=== PATIENT | male | born 1980 | race Caucasian/White ===

== ENCOUNTER 2018-06-14 07:57 | Emergency (ER) | payer BC ==
--- NOTE | 2018-06-14 08:51 | EDM.PDOC ---
ED HPI GENERAL MEDICAL PROBLEM - General Chief Complaint: Gastrointestinal Problem Stated Complaint: POSSIBLE THROMBOSIS Time Seen by Provider: 06/14/18 08:02 Source of Information: Reports: Patient History Limitations: Reports: No Limitations - History of Present Illness INITIAL COMMENTS - FREE TEXT/NARRATIVE: History of present illness: [Patient has a history of hemorrhoids and has had a thrombosed hemorrhoid in the past. He thinks he has another one. She has pain, no bleeding Review of systems: As per history of present illness and below otherwise all systems reviewed and negative. Past medical history: As per history of present illness and as reviewed below otherwise noncontributory. Surgical history: As per history of present illness and as reviewed below otherwise noncontributory. Social history: No reported history of drug or alcohol abuse. Family history: As per history of present illness and as reviewed below otherwise noncontributory. Physical exam: General: Well developed, well nourished in NAD HEENT: Atraumatic, normocephalic, pupils reactive, negative for conjunctival pallor or scleral icterus, mucous membranes moist, throat clear, neck supple, nontender, trachea midline. Lungs: Clear to auscultation, breath sounds equal bilaterally, chest nontender. Heart: S1S2, regular, negative for clicks, rubs, or JVD. Abdomen: NABS, Soft, nondistended, nontender. Negative for masses or hepatosplenomegaly. Negative for costovertebral tenderness. Pelvis: Stable nontender. Genitourinary: Deferred. Rectal: Positive external hemorrhoid, erythematous, it is not thrombosed at this time is fluctuant Extremities: Atraumatic, negative for cords or calf pain. Neurovascular unremarkable. Neuro: Awake, alert, oriented. Cranial nerves II through XII unremarkable. Cerebellum unremarkable. Motor and sensory unremarkable throughout. Exam nonfocal. Skin:warm and dry Diagnostics: None Therapeutics: None ED Course: Unremarkable Impression: Inflamed hemorrhoids Prescriptions: Anusol cream, stool softeners, tramadol for pain Plan: Take meds as directed, follow up with your primary care physician, return to ER if symptoms worsen or change.follow-up with general surgery Definitive disposition and diagnosis as appropriate pending reevaluation and review of above. Rectal Pain Score (Numeric/FACES): 5 - Related Data Allergies Allergy/AdvReac Type Severity Reaction Status Date / Time erythromycin base Allergy Other Verified 06/14/18 08:22 Penicillins Allergy Other Verified 06/14/18 08:22 Home Meds: Home Meds Hydrocortisone [Anusol-HC] 30 gm RC QID #1 tube 06/14/18 [Rx] Multivitamin [Multivitamins] 1 tab DAILY 06/14/18 [History] traMADol HCl [Tramadol HCl] 50 mg PO Q6H PRN #16 tablet 06/14/18 [Rx] Past Medical History - Past Health History Medical/Surgical History: Denies Medical/Surgical History Endocrine/Metabolic History: Reports: Obesity/BMI 30+ - Past Surgical History GI Surgical History: Reports: Other (See Below) Other GI Surgeries/Procedures: stomach surgery Musculoskeletal Surgical History: Reports: Other (See Below) Other Musculoskeletal Surgeries/Procedures:: nerve release on ankle Social & Family History - Family History Family Medical History: Noncontributory - Tobacco Use Smoking Status *Q: Current Every Day Smoker Years of Tobacco use: 20 Packs/Tins Daily: 1 - Recreational Drug Use Recreational Drug Use: No ED ROS GENERAL - Review of Systems Review Of Systems: ROS reveals no pertinent complaints other than HPI. ED EXAM, RENAL/ - Physical Exam Exam: See Below (See history of present illness) Course - Vital Signs Last Recorded V/S: Last Vital Signs Temp 96.8 F 06/14/18 08:20 Pulse 85 06/14/18 08:20 Resp 18 06/14/18 08:20 BP 132/98 H 06/14/18 08:20 Pulse Ox 96 06/14/18 08:20 Departure - Departure Time of Disposition: 08:50 Disposition: Home, Self-Care 01 Condition: Good Clinical Impression: Inflamed external hemorrhoid - Discharge Information *PRESCRIPTION DRUG MONITORING PROGRAM REVIEWED*: No *COPY OF PRESCRIPTION DRUG MONITORING REPORT IN PATIENT [place]: No Prescriptions: Hydrocortisone [Anusol-HC] 30 gm RC QID #1 tube traMADol HCl [Tramadol HCl] 50 mg PO Q6H PRN #16 tablet PRN Reason: Pain Referrals: PCP,None [Primary Care Provider] - Additional Instructions: The following information is given to patients seen in the emergency department who are being discharged to home. This information is to outline your options for follow-up care. We provide all patients seen in our emergency department with a follow-up referral. The need for follow-up, as well as the timing and circumstances, are variable depending upon the specifics of your emergency department visit. If you don't have a primary care physician on staff, we will provide you with a referral. We always advise you to contact your personal physician following an emergency department visit to inform them of the circumstance of the visit and for follow-up with them and/or the need for any referrals to a consulting specialist. The emergency department will also refer you to a specialist when appropriate. This referral assures that you have the opportunity for follow-up care with a specialist. All of these measure are taken in an effort to provide you with optimal care, which includes your follow-up. Under all circumstances we always encourage you to contact your private physician who remains a resource for coordinating your care. When calling for follow-up care, please make the office aware that this follow-up is from your recent emergency room visit. If for any reason you are refused follow-up, please contact the [facility] at and asked to speak to the emergency department charge nurse. Take meds as directed, follow up with your primary care physician, return to ER if symptoms worsen or change. [facility] [place] [id number]
== END 2018-06-14 09:13 | disposition home or self-care (01) ==
LOC: MW.ED 07:57
DX: K64.4 Residual hemorrhoidal skin tags (principal); F17.210 Nicotine dependence, cigarettes, uncomplicated; Z88.0 Allergy status to penicillin; Z88.1 Allergy status to other antibiotic agents
CPT/HCPCS: 99282; 99283

== ENCOUNTER 2018-08-20 07:29 | Day surgery (SDC) | payer BC ==
[~2018-08-20 07:29] MED LIST: Bupivacaine 0.5% 10 ML SDV ONE; Lactated Ringers 1,000 ML IV SCH; ceFAZolin 1 GM Vial ONE; ceFAZolin 2 GM in Premix Bag 1 BAG IV SCH
--- NOTE | 2018-08-20 08:20 | PCM.PREANE ---
Preanesthetic Assessment - Anesthesia/Transfusion/Family Hx Anesthesia History: Prior Anesthesia Reaction (HIGH TOLERANCE, otherwise no other problems) Other Type of Anesthesia Reaction Comment: "it takes alot to put me under" " woke up during my EGD" Family History of Anesthesia Reaction: No Transfusion History: No Prior Transfusion(s) - Review of Systems General: No Symptoms Pulmonary: No Symptoms Cardiovascular: No Symptoms Gastrointestinal: No Symptoms Neurological: No Symptoms Other: Reports: None - Physical Assessment O2 Sat by Pulse Oximetry: 96 Respiratory Rate: 16 Vital Signs: Last Vital Signs Temp Pulse 84 08/20/18 08:00 Resp 16 08/20/18 08:00 BP 145/92 H 08/20/18 08:00 Pulse Ox 96 08/20/18 08:00 Height: 1.96 m Weight: 127.006 kg ASA Class: 2 Mental Status: Alert & Oriented x3 Airway Class: Mallampati = 2 Dentition: Reports: Dentures (full upper) Thyro-Mental Finger Breadths: 3 Mouth Opening Finger Breadths: 3 ROM/Head Extension: Full Lungs: Clear to Auscultation, Normal Respiratory Effort Cardiovascular: Regular Rate, Regular Rhythm - Allergies Allergies/Adverse Reactions: Allergies Allergy/AdvReac Type Severity Reaction Status Date / Time erythromycin base Allergy Cannot Verified 08/16/18 12:13 Remember Penicillins Allergy Cannot Verified 08/16/18 12:13 Remember - Acknowledgements Anesthesia Type Planned: General Anesthesia Pt an Appropriate Candidate for the Planned Anesthesia: Yes Alternatives and Risks of Anesthesia Discussed w Pt/Guardian: Yes Pt/Guardian Understands and Agrees with Anesthesia Plan: Yes PreAnesthesia Questionnaire - Past Health History Medical/Surgical History: Denies Medical/Surgical History HEENT History: Reports: Other (See Below) Other HEENT History: upper denture Cardiovascular History: Reports: None Respiratory History: Reports: Other (See Below) (chronic tobacco use for 20 years) Gastrointestinal History: Reports: GERD (controlled), Hemorrhoids Other Gastrointestinal History: hx barretts esophagus Genitourinary History: Reports: None Musculoskeletal History: Reports: Fracture Other Musculoskeletal History: hx fx ribs, forearm and hand Neurological History: Reports: Concussion Psychiatric History: Reports: Depression Endocrine/Metabolic History: Reports: Obesity/BMI 30+ Hematologic History: Reports: None Immunologic History: Reports: None Oncologic (Cancer) History: Reports: None Dermatologic History: Reports: None - Past Surgical History Head Surgeries/Procedures: Reports: None HEENT Surgical History: Reports: LASIK, Oral Surgery (dental extractions) Cardiovascular Surgical History: Reports: None Respiratory Surgical History: Reports: None GI Surgical History: Reports: EGD, Placido Fundoplication Male Surgical History: Reports: None Endocrine Surgical History: Reports: None Neurological Surgical History: Reports: None Musculoskeletal Surgical History: Reports: Other (See Below) Other Musculoskeletal Surgeries/Procedures:: nerve release on left ankle, plantar fasciotomy-left Oncologic Surgical History: Reports: None - SUBSTANCE USE Smoking Status *Q: Current Every Day Smoker (for 20 years) Tobacco Use Within Last Twelve Months: Cigarettes Days Per Week of Alcohol Use: 7 ("7 or less per week") Recreational Drug Use History: No - HOME MEDS Home Medications: Home Meds Multivitamin [Multivitamins] 1 tab PO DAILY 06/14/18 [History] Cholecalciferol (Vitamin D3) [Vitamin D3] 1,000 units PO DAILY 08/16/18 [History ] Desvenlafaxine Succinate [Pristiq] 50 mg PO DAILY 08/16/18 [History] Hydrocortisone [Anusol-HC] 30 gm RECTAL QID PRN 08/16/18 [History] Vitamin B Complex 1 tab PO DAILY 08/16/18 [History] - CURRENT (IN HOUSE) MEDS Current Meds: Current Medications Cefazolin Sodium/Dextrose 2 gm (/ Premix) 50 mls @ 100 mls/hr IV ONETIME NEPTALI Lactated Ringer's (Ringers, Lactated) 1,000 mls @ 125 mls/hr IV ASDIRECTED NEPTALI Last Admin: 08/20/18 08:10 Dose: 125 mls/hr Discontinued Medications Bupivacaine HCl (Sensorcaine-Mpf 0.5%) Confirm Administered Dose 10 ml .ROUTE .STK-MED ONE Stop: 08/20/18 07:22 Cefazolin Sodium (Ancef) Confirm Administered Dose 1 gm .ROUTE .STK-MED ONE Stop: 08/20/18 07:22
[2018-08-20] MEDS ORDERED: Midazolam 1 MG/ML 2 ML SDV ONE (08:56)
[2018-08-20] MEDS ORDERED: fentaNYL 100 MCG/2 ML SDV ONE ×2 (08:56→10:13)
[2018-08-20] MEDS ORDERED: Propofol 200 MG/20 ML SDV ONE (08:56)
[2018-08-20] MEDS ORDERED: Ketorolac 30 MG/ML SDV ONE (10:21)
[2018-08-20] MEDS ORDERED: Ondansetron 4 MG/2 ML SDV ONE (10:21)
[2018-08-20] MEDS ORDERED: Ondansetron 4 MG/2 ML SDV IVPUSH PRN (10:42)
[2018-08-20] MEDS ORDERED: Morphine 10 MG/ML Syringe IVPUSH PRN (10:42)
[2018-08-20] MEDS ORDERED: Acetaminophen/HYDROcodone 325-5 MG Tab PO PRN (10:42)
--- NOTE | 2018-08-20 10:44 | PCM.OPNOTE ---
- General Post-Op/Procedure Note Date of Surgery/Procedure: 08/20/18 Operative Procedure(s): Repair incarcerated incisional hernia with 4.3 cm Ventralex mesh Pre Op Diagnosis: Incarcerated incisional hernia Post-Op Diagnosis: Same Anesthesia Technique: General LMA (ASA II) Primary Surgeon: Yuniel Yoder Court Advocate: Marietta Portillo Fluid Replacement, Intraop: 600 EBL in mLs: 5 Condition: Good Free Text/Narrative:: DICTATION [id number] CPT CODE 05063, 04241
[2018-08-20] MEDS ORDERED: Lactated Ringers 1,000 ML IV SCH (10:45)
[2018-08-20] MEDS: fentaNYL 100 MCG/2 ML SDV IVPUSH PRN ×2 (10:47→10:56)
[2018-08-20] MEDS ORDERED: HYDROmorphone 2 MG/ML Syringe ONE ×2 (11:03→12:09)
[2018-08-20] MEDS: HYDROmorphone 2 MG/ML SDV IVPUSH PRN ×2 (11:05→11:16)
--- NOTE | 2018-08-20 11:10 | OR ---
SURGEON: Yuniel Yoder M.D. DATE OF PROCEDURE: 08/20/2018 OPERATION PERFORMED: Repair of incarcerated incisional hernia with 4.3 cm Ventralex mesh. STRUCTURAL STEEL DETAILER: Fender Mechanic Apprentice: Criss Portillo surgical technology instructor clerical assistant student. PREOPERATIVE DIAGNOSIS: Incarcerated incisional hernia. POSTOPERATIVE DIAGNOSIS: Incarcerated incisional hernia. ESTIMATED BLOOD LOSS: 5 mL. INTRAOPERATIVE FLUID REPLACEMENT: 600 mL of crystalloid. ASA CLASSIFICATION: II. DESCRIPTION OF PROCEDURE: The patient was taken to the operating room and placed on the operating table in the supine position. Time-out was called for appropriate identification of the patient and procedure. Thigh-high TEDs and sequential compression boots were placed. The surgical site had been marked prior to the patient entering the operating room. Following satisfactory attainment of general anesthesia with placement of an LMA, the abdomen was prepped with DuraPrep solution and sterile drapes were applied. The skin overlying the previous trocar site was infiltrated with 10 mL of 0.5% Marcaine solution. The skin incision was made and deepened through the subcutaneous tissue down to the hernia sac which was circumferentially dissected with a combination of sharp dissection and electrocautery. Care was taken not to enter the sac. Once the sac was circumferentially dissected free down to the fascia, I was able to reduce this. There was a second smaller defect just inferior to the larger defect. The two defects were connected. At this point, it was large enough to place a mesh in an underlay technique. A 4.3 cm Ventralex mesh was brought to the operating table and soaked in 1% Ancef solution. The mesh was then placed in an underlay position and secured with multiple interrupted horizontal mattress 0 Ethibond sutures. Once all the sutures had been placed and tied down, the patient was given a Valsalva maneuver to 35 cm of water. The repair was solid. The fascia was then reapproximated over the mesh again with interrupted 0 Ethibond. The wound was irrigated with Ancef solution and all fluid aspirated. Subcutaneous tissue was closed with 3-0 Vicryl in a running fashion. The skin edges were reapproximated with subcuticular 4-0 Monocryl, reinforced with half-inch Steri- Strips. Sterile Tegaderm pad was placed as a dressing. Sponge, needle, and instrument counts were all correct. Following emergence from anesthesia and extubation, the patient was taken to recovery room in stable condition. ANDEWAY / ROBYN /[id number]
[2018-08-20] MEDS ORDERED: Acetaminophen 1,000 MG in Premix Bag 1 BAG IV STA (11:33)
--- NOTE | 2018-08-20 11:33 | PCM.POSTAN ---
POST ANESTHESIA ASSESSMENT - MENTAL STATUS Mental Status: Alert, Oriented - RESPIRATORY Respiratory Status: Respiratory Rate WNL, Airway Patent, O2 Saturation Stable - CARDIOVASCULAR CV Status: Pulse Rate WNL, Blood Pressure Stable - GASTROINTESTINAL GI Status: No Symptoms - PAIN Pain Score: 5 - POST OP HYDRATION Hydration Status: Adequate & Stable - OBSERVATIONS Free Text/Narrative:: The patient tolerated the procedure well. There were no apparent anesthetic complications at this time.
[2018-08-20] MEDS ORDERED: oxyCODONE 5 MG Tab PO ONE (11:42)
[2018-08-20] MEDS ORDERED: HYDROmorphone 2 MG/ML Syringe IVPUSH ONE (12:06)
--- NOTE | 2018-08-20 13:15 | PCM48HPAN ---
Post Anesthesia Note - EVALUATION WITHIN 48HRS OF ANESTHETIC Vital Signs in Normal Range: Yes Patient Participated in Evaluation: Yes Respiratory Function Stable: Yes Airway Patent: Yes Cardiovascular Function Stable: Yes Hydration Status Stable: Yes Pain Control Satisfactory: Yes Nausea and Vomiting Control Satisfactory: Yes Mental Status Recovered: Yes Resp Rate: 14 - COMMENTS/OBSERVATIONS Free Text/Narrative:: The patient tolerated the procedure well. Has no complaints at this time. Discharge home per criteria.
== END 2018-08-20 13:25 | disposition home or self-care (01) ==
LOC: MW.SDS 07:29
PROVIDERS: ATTEND Surgery
DX: K43.0 Incisional hernia with obstruction, without gangrene (principal); E66.9 Obesity, unspecified; Z68.33 Body mass index [BMI] 33.0-33.9, adult; F32.9 Major depressive disorder, single episode, unspecified; F17.210 Nicotine dependence, cigarettes, uncomplicated; Z88.1 Allergy status to other antibiotic agents; Z88.0 Allergy status to penicillin
CPT/HCPCS: 49566; 49568; A9270; C1781; J0131; J0690; J1170; J1885; J2250; J2270; J2405; J2704; J3010; J3490; J7120

== ENCOUNTER 2019-05-02 13:15 | Emergency (ER) | payer BC ==
--- NOTE | 2019-05-02 13:30 | EDM.PDOC ---
ED HPI GENERAL MEDICAL PROBLEM - General Chief Complaint: General Stated Complaint: RIGHT BROKEN RIBS Time Seen by Provider: 05/02/19 13:29 Source of Information: Reports: Patient History Limitations: Reports: No Limitations - History of Present Illness INITIAL COMMENTS - FREE TEXT/NARRATIVE: HISTORY AND PHYSICAL: History of present illness: Patient is a 39-year-old male who presents to the emergency room with complaints of right-sided rib pain. He states prior to arrival he was wrestling with his son when he had fallen and injured the right side of his chest wall and is concerned he has fractured ribs. Patient denies any fever, chills, headache, change in vision, syncope or near syncope. Denies any neck/back pain, shortness of breath or cough. Denies any abdominal pain, nausea, vomiting, diarrhea, constipation or dysuria. Has not noted any blood in urine or stool. Patient has been eating and drinking appropriately. Review of systems: As per history of present illness and below otherwise all systems reviewed and negative. Past medical history: As per history of present illness and as reviewed below otherwise noncontributory. Surgical history: As per history of present illness and as reviewed below otherwise noncontributory. Social history: See social history for further information Family history: As per history of present illness and as reviewed below otherwise noncontributory. Physical exam: General: Well-developed and well-nourished 39-year-old male. Alert and oriented. Nontoxic appearing and in no acute distress. Vital signs are stable and have been reviewed by me. HEENT: Atraumatic, normocephalic, pupils equal and reactive bilaterally, negative for conjunctival pallor or scleral icterus, mucous membranes moist, TMs normal bilaterally, throat clear, neck supple, nontender, trachea midline. No drooling or trismus noted. No meningeal signs. No hot potato voice noted. Lungs: Clear to auscultation, breath sounds equal bilaterally, right anterior lower chest wall pain. Heart: S1S2, regular rate and rhythm without overt murmur Abdomen: Soft, nondistended, nontender. Negative for masses or hepatosplenomegaly. Negative for costovertebral tenderness. Pelvis: Stable nontender. Skin: Intact, warm, dry. No lesions or rashes noted. Extremities: Atraumatic, moves all extremities per self without difficulty or deficits, negative for cords or calf pain. Neurovascular unremarkable. Neuro: Awake, alert, oriented. Cranial nerves II through XII unremarkable. Cerebellum unremarkable. Motor and sensory unremarkable throughout. Exam nonfocal. Notes: X-ray shows no rib fractures. Medication and supportive care measures were reviewed and discussed. Voices understanding and is agreeable to plan of care. Denies any further questions or concerns at this time. Diagnostics: CXR with rib Therapeutics: Richland Prescription: Richland (#20) Impression: Rib injury, right Plan: 1. Rest, ice, elevate the affected extremity. Splint your chest wall and cough/ deep breathing a few times each hour over the next few days. 2. Tylenol and/or Ibuprofen as needed for pain management. 3. Follow up with the Orthopedic provider as we discussed. Return to the ED as needed and as discussed. Definitive disposition and diagnosis as appropriate pending reevaluation and review of above. Right Chest Pain Score (Numeric/FACES): 6 - Related Data Allergies Allergy/AdvReac Type Severity Reaction Status Date / Time erythromycin base Allergy Cannot Verified 05/02/19 13:47 Remember Penicillins Allergy Cannot Verified 05/02/19 13:47 Remember Home Meds: Home Meds Multivitamin [Multivitamins] 1 tab PO DAILY 06/14/18 [History] Cholecalciferol (Vitamin D3) [Vitamin D3] 1,000 units PO DAILY 08/16/18 [History ] Acetaminophen/HYDROcodone [Richland 325-5 MG] 1 dose PO Q4H #20 tablet 05/02/19 [Rx ] Past Medical History - Past Health History Medical/Surgical History: Denies Medical/Surgical History HEENT History: Reports: Other (See Below) Other HEENT History: upper denture Cardiovascular History: Reports: None Respiratory History: Reports: Other (See Below) (chronic tobacco use for 20 years) Gastrointestinal History: Reports: GERD (controlled), Hemorrhoids Other Gastrointestinal History: hx barretts esophagus Genitourinary History: Reports: None Musculoskeletal History: Reports: Fracture Other Musculoskeletal History: hx fx ribs, forearm and hand Neurological History: Reports: Concussion Psychiatric History: Reports: Depression Endocrine/Metabolic History: Reports: Obesity/BMI 30+ Hematologic History: Reports: None Immunologic History: Reports: None Oncologic (Cancer) History: Reports: None Dermatologic History: Reports: None - Past Surgical History Head Surgeries/Procedures: Reports: None HEENT Surgical History: Reports: LASIK, Oral Surgery (dental extractions) Cardiovascular Surgical History: Reports: None Respiratory Surgical History: Reports: None GI Surgical History: Reports: EGD, Placido Fundoplication Male Surgical History: Reports: None Endocrine Surgical History: Reports: None Neurological Surgical History: Reports: None Musculoskeletal Surgical History: Reports: Other (See Below) Other Musculoskeletal Surgeries/Procedures:: nerve release on left ankle, plantar fasciotomy-left Oncologic Surgical History: Reports: None Social & Family History - Family History Family Medical History: Noncontributory ED ROS GENERAL - Review of Systems Review Of Systems: Comprehensive ROS is negative, except as noted in HPI. ED EXAM, GENERAL - Physical Exam Exam: See Below (See dictation) Course - Vital Signs Last Recorded V/S: Last Vital Signs Temp 97.5 F 05/02/19 13:42 Pulse 80 05/02/19 13:42 Resp 18 05/02/19 13:42 BP 140/92 H 05/02/19 13:42 Pulse Ox 98 05/02/19 13:42 - Orders/Labs/Meds Meds: Medications Discontinued Medications Generic Name Dose Route Start Last Admin Trade Name Concha PRN Reason Stop Dose Admin Hydrocodone Bitart/Acetaminophen 1 tab 05/02/19 13:59 05/02/19 14:17 Richland 325-5 Mg PO 05/02/19 14:00 1 tab ONETIME ONE Administration Departure - Departure Time of Disposition: 14:35 Disposition: Home, Self-Care 01 Clinical Impression: Rib injury - Discharge Information Prescriptions: Acetaminophen/HYDROcodone [Richland 325-5 MG] 1 dose PO Q4H #20 tablet Referrals: PCP,Unknown [Primary Care Provider] - Forms: ED Department Discharge Additional Instructions: The following information is given to patients seen in the emergency department who are being discharged to home. This information is to outline your options for follow-up care. We provide all patients seen in our emergency department with a follow-up referral. The need for follow-up, as well as the timing and circumstances, are variable depending upon the specifics of your emergency department visit. If you don't have a primary care physician on staff, we will provide you with a referral. We always advise you to contact your personal physician following an emergency department visit to inform them of the circumstance of the visit and for follow-up with them and/or the need for any referrals to a consulting specialist. The emergency department will also refer you to a specialist when appropriate. This referral assures that you have the opportunity for follow-up care with a specialist. All of these measure are taken in an effort to provide you with optimal care, which includes your follow-up. Under all circumstances we always encourage you to contact your private physician who remains a resource for coordinating your care. When calling for follow-up care, please make the office aware that this follow-up is from your recent emergency room visit. If for any reason you are refused follow-up, please contact the [facility] at and asked to speak to the emergency department charge nurse. [facility] [address] [place] [address] [id number] [address] [address] 1. Rest, ice, elevate the affected extremity. Splint your chest wall and cough/ deep breathing a few times each hour over the next few days (prevent pneumonia) . 2. Tylenol and/or Ibuprofen as needed for pain management. 3. Follow up with the Orthopedic provider as we discussed. Return to the ED as needed and as discussed. Sepsis Event Note - Focused Exam Vital Signs: Vital Signs Temp Pulse Resp BP Pulse Ox 05/02/19 13:42 97.5 F 80 18 140/92 H 98 Date Exam was Performed: 05/02/19 Time Exam was Performed: 14:34
[2019-05-02] MEDS ORDERED: Acetaminophen/HYDROcodone 325-5 MG Tab PO ONE (13:59)
--- NOTE | 2019-05-02 14:33 | CR ---
Chest and right ribs: Frontal view of the chest was obtained as well as 4 views of the right ribs. Comparison: No previous study. Small hiatal hernia appears to be present. Heart size and mediastinum are normal. Lungs are clear. No discrete fracture or other right-sided rib abnormality is appreciated. Impression: 1. Small hiatal hernia is noted. Nothing acute seen on frontal chest x-ray. 2. No discrete right-sided rib abnormality is appreciated. Diagnostic code #2 This report was dictated in [place] Standard Time
== END 2019-05-02 14:45 | disposition home or self-care (01) ==
LOC: MW.ED 13:15
DX: S29.9XXA Unspecified injury of thorax, initial encounter (principal); E66.9 Obesity, unspecified; Z68.33 Body mass index [BMI] 33.0-33.9, adult; Z88.1 Allergy status to other antibiotic agents; Z88.0 Allergy status to penicillin; W19.XXXA Unspecified fall, initial encounter; Y93.72 Activity, wrestling
CPT/HCPCS: 71101; 99283; A9270

== ENCOUNTER 2019-05-05 14:42 | Emergency (ER) | payer BC ==
[2019-05-05] MEDS ORDERED: Ketorolac 60 MG/2 ML SDV IM ONE (16:45)
--- NOTE | 2019-05-05 16:53 | EDM.PDOC ---
ED HPI GENERAL MEDICAL PROBLEM - General Chief Complaint: General Stated Complaint: RIB PAIN Time Seen by Provider: 05/05/19 14:52 Source of Information: Reports: Patient History Limitations: Reports: No Limitations - History of Present Illness INITIAL COMMENTS - FREE TEXT/NARRATIVE: HISTORY AND PHYSICAL: History of present illness: Patient is a 39-year-old male who presents to the ED today with concern of right sided rib injury that occurred 3 days ago. Patient was seen and evaluated in the ED at that time and had imaging of his ribs. Patient states that he has continued to have pain in his ribs and feels like one is broken and can "feel 1 rib moving." Patient denies any shortness of breath or any change of the rib pain. Patient denies any new injury or any other symptoms or concerns. Patient was given Clayton at his visit 3 days ago but states he has not been taking these because work will not allow him to work with it. Patient states the ribs were initially injured when he was wrestling with his son and tripped and fell and landed and hit his ribs against the side of the counter. Patient denies fever, chills, chest pain, shortness of breath, or cough. Denies headache, neck stiff ness, change in vision, syncope, or near syncope. Denies nausea, vomiting, abdominal pain, diarrhea, constipation, or dysuria. Has not noted any blood in urine or stool. Patient has been eating and drinking appropriately. Review of systems: As per history of present illness and below otherwise all systems reviewed and negative. Past medical history: As per history of present illness and as reviewed below otherwise noncontributory. Surgical history: As per history of present illness and as reviewed below otherwise noncontributory. Social history: See social history for further information Family history: As per history of present illness and as reviewed below otherwise noncontributory. Physical exam: General: Patient is alert, oriented, and in no acute distress. Patient sitting comfortably on exam table. HEENT: Atraumatic, normocephalic, pupils equal and reactive bilaterally, negative for conjunctival pallor or scleral icterus, mucous membranes moist, TMs normal bilaterally, throat clear, neck supple, nontender, trachea midline. No drooling or trismus noted. No meningeal signs. No hot potato voice noted. Lungs: Clear to auscultation, breath sounds equal bilaterally. Moderate tenderness of the anterior ribs 5-7 on the right chest without guarding. No crepitus noted or bruising. Heart: S1S2, regular rate and rhythm without overt murmur Abdomen: Soft, nondistended, nontender. Negative for masses or hepatosplenomegaly. Negative for costovertebral tenderness. Pelvis: Stable nontender. Genitourinary: Deferred. Rectal: Deferred. Skin: Intact, warm, dry. No lesions or rashes noted. Extremities: Atraumatic, negative for cords or calf pain. Neurovascular unremarkable. Neuro: Awake, alert, oriented. Cranial nerves II through XII unremarkable. Cerebellum unremarkable. Motor and sensory unremarkable throughout. Exam nonfocal. Notes: Discussed importance for follow-up with a primary care provider. Voices understanding and is agreeable to plan of care. Denies any further questions or concerns at this time. Diagnostics: Rib w chest Therapeutics: Incentive spirometry Prescription: Diclofenac Impression: Right sided rib pain Plan: 1. Rest, ice, elevate the affected area. You can apply ice 15 minutes on, 15 minutes off. Use incentive spirometer as discussed. 2. Tylenol as directed for pain management or discomfort. Take medication as prescribed. 3. Follow up with the primary care provider as discussed. Return to the ED as needed and as discussed. Definitive disposition and diagnosis as appropriate pending reevaluation and review of above. Right rib Pain Score (Numeric/FACES): 6 - Related Data Allergies Allergy/AdvReac Type Severity Reaction Status Date / Time erythromycin base Allergy Cannot Verified 05/05/19 15:41 Remember Penicillins Allergy Cannot Verified 05/05/19 15:41 Remember Home Meds: Home Meds Multivitamin [Multivitamins] 1 tab PO DAILY 06/14/18 [History] Cholecalciferol (Vitamin D3) [Vitamin D3] 1,000 units PO DAILY 08/16/18 [History ] Acetaminophen/HYDROcodone [Clayton 325-5 MG] 1 dose PO Q4H #20 tablet 05/02/19 [Rx ] Diclofenac Sodium [Voltaren] 75 mg PO BIDMEALS PRN #15 tab.cr 05/05/19 [Rx] Past Medical History - Past Health History Medical/Surgical History: Denies Medical/Surgical History HEENT History: Reports: Other (See Below) Other HEENT History: upper denture Cardiovascular History: Reports: None Respiratory History: Reports: Other (See Below) Gastrointestinal History: Reports: GERD, Hemorrhoids Other Gastrointestinal History: hx barretts esophagus Genitourinary History: Reports: None Musculoskeletal History: Reports: Fracture Other Musculoskeletal History: hx fx ribs, forearm and hand Neurological History: Reports: Concussion Psychiatric History: Reports: Depression Endocrine/Metabolic History: Reports: Obesity/BMI 30+ Hematologic History: Reports: None Immunologic History: Reports: None Oncologic (Cancer) History: Reports: None Dermatologic History: Reports: None - Infectious Disease History Infectious Disease History: Reports: Chicken Pox - Past Surgical History Head Surgeries/Procedures: Reports: None HEENT Surgical History: Reports: LASIK, Oral Surgery Cardiovascular Surgical History: Reports: None Respiratory Surgical History: Reports: None GI Surgical History: Reports: EGD, Placido Fundoplication Male Surgical History: Reports: None Endocrine Surgical History: Reports: None Neurological Surgical History: Reports: None Musculoskeletal Surgical History: Reports: Other (See Below) Other Musculoskeletal Surgeries/Procedures:: nerve release on left ankle, plantar fasciotomy-left Oncologic Surgical History: Reports: None Social & Family History - Family History Family Medical History: Noncontributory - Tobacco Use Smoking Status *Q: Current Every Day Smoker Years of Tobacco use: 20 Packs/Tins Daily: 1 - Caffeine Use Caffeine Use: Reports: Coffee - Recreational Drug Use Recreational Drug Use: No ED ROS GENERAL - Review of Systems Review Of Systems: Comprehensive ROS is negative, except as noted in HPI. ED EXAM, GENERAL - Physical Exam Exam: See Below (see dictation) Course - Vital Signs Last Recorded V/S: Last Vital Signs Temp 98.2 F 05/05/19 15:41 Pulse 92 05/05/19 15:41 Resp 16 05/05/19 15:41 BP 148/87 H 05/05/19 15:41 Pulse Ox 97 05/05/19 15:41 - Orders/Labs/Meds Orders: Active Orders 24 hr Category Date Time Status DME for Discharge [COMM] Stat Oth 05/05/19 16:45 Ordered Meds: Medications Discontinued Medications Generic Name Dose Route Start Last Admin Trade Name Freq PRN Reason Stop Dose Admin Ketorolac Tromethamine 60 mg 05/05/19 16:45 05/05/19 16:56 Toradol IM 05/05/19 16:46 60 mg ONETIME ONE Administration Departure - Departure Time of Disposition: 17:51 Disposition: Home, Self-Care 01 Clinical Impression: Rib injury - Discharge Information Prescriptions: Diclofenac Sodium [Voltaren] 75 mg PO BIDMEALS PRN #15 tab.cr PRN Reason: Pain Referrals: Jerrod Juan MD [Primary Care Provider] - Forms: ED Department Discharge Additional Instructions: The following information is given to patients seen in the emergency department who are being discharged to home. This information is to outline your options for follow-up care. We provide all patients seen in our emergency department with a follow-up referral. The need for follow-up, as well as the timing and circumstances, are variable depending upon the specifics of your emergency department visit. If you don't have a primary care physician on staff, we will provide you with a referral. We always advise you to contact your personal physician following an emergency department visit to inform them of the circumstance of the visit and for follow-up with them and/or the need for any referrals to a consulting specialist. The emergency department will also refer you to a specialist when appropriate. This referral assures that you have the opportunity for follow-up care with a specialist. All of these measure are taken in an effort to provide you with optimal care, which includes your follow-up. Under all circumstances we always encourage you to contact your private physician who remains a resource for coordinating your care. When calling for follow-up care, please make the office aware that this follow-up is from your recent emergency room visit. If for any reason you are refused follow-up, please contact the [facility] Emergency Department at and asked to speak to the emergency department charge nurse. [facility] Primary Care [address] [place] [id number] [address] 1. Rest, ice, elevate the affected area. You can apply ice 15 minutes on, 15 minutes off. Use incentive spirometer as discussed. 2. Tylenol as directed for pain management or discomfort. Take medication as prescribed. 3. Follow up with the primary care provider as discussed. Return to the ED as needed and as discussed. Sepsis Event Note - Evaluation Sepsis Screening Result: No Definite Risk - Focused Exam Vital Signs: Vital Signs Temp Pulse Resp BP Pulse Ox 05/05/19 15:41 98.2 F 92 16 148/87 H 97 Date Exam was Performed: 05/05/19 Time Exam was Performed: 17:51 - My Orders Last 24 Hours: My Active Orders 05/05/19 16:45 DME for Discharge [COMM] Stat - Assessment/Plan Last 24 Hours: My Active Orders 05/05/19 16:45 DME for Discharge [COMM] Stat
--- NOTE | 2019-05-05 17:43 | CR ---
Indication: Right rib pain. Technique: PA view of the chest and three views of the right ribs. Comparison: May 02, 2019. Findings: The heart is normal in size. The lungs are clear. No infiltrate, pleural effusion, or pneumothorax is identified. No displaced right rib fractures are identified. Impression: No displaced right rib fractures. Dictated by Eunice Klein MD @ May 05 2019 5:40PM Signed by Dr. Eunice Klein @ May 05 2019 5:41PM
== END 2019-05-05 18:24 | disposition home or self-care (01) ==
LOC: MW.ED 14:42
DX: S29.9XXA Unspecified injury of thorax, initial encounter (principal); F17.210 Nicotine dependence, cigarettes, uncomplicated; Z88.0 Allergy status to penicillin; Z88.1 Allergy status to other antibiotic agents; X58.XXXA Exposure to other specified factors, initial encounter
CPT/HCPCS: 71101; 96374; 99283; J1885